=== PATIENT | female | born 1970 | race Caucasian/White ===

== ENCOUNTER → 2023-07-03 08:50 | Outpatient (CLI) | payer OTHER, SELFPAY ==
--- NOTE | 2023-07-03 08:51 | DI.US.S_ITS ---
PROCEDURE: US ABDOMEN LIMITED INDICATIONS: ANTERIOR ABDOMINAL WALL LUMP TECHNIQUE: Real-time focused scanning was performed of the abdomen, with image documentation. COMPARISON: None. FINDINGS: At the area of clinical concern, there is an ovoid nonvascular focus seen that measures 4.5 x 1.3 x 4.8 cm. This is seen adjacent to a 7 mm gap within the anterior abdominal wall. This focus does not change with Valsalva maneuver. No peristalsis can be seen within it. IMPRESSION: Fat containing anterior abdominal wall hernia seen at the site of clinical concern until proven otherwise. Dictated by: Be Venegas M.D. on 07/03/2023 at 15:56 Approved by: Be Venegas M.D. on 07/03/2023 at 15:57
== END ==
PROVIDERS: PCP Family Medicine; Referring Provider Family Medicine; Visit Provider Family Medicine
DX: K43.9 Ventral hernia without obstruction or gangrene (principal)
CPT/HCPCS: 76705

== ENCOUNTER → 2024-12-12 15:43 | Outpatient (CLI) | payer OTHER, SELFPAY | LOC: LAB 15:44 | PROVIDERS: PCP Family Medicine; Visit Provider Nurse Practitioner Family | DX: L98.9 Disorder of the skin and subcutaneous tissue, unspecified (principal) | CPT/HCPCS: 87070; 87205 ==